=== PATIENT | female | born 1980 | race Caucasian/White ===

== ENCOUNTER 2021-06-11 08:12 | Day surgery (SDC) | payer OTHER ==
[2021-06-10 14:26] VITALS: BMI 25.7
[2021-06-11] MEDS ORDERED: BUPIVACAINE HCL/PF 0.5% (5MG/ML) 10 ML VIAL ONE (09:59)
[2021-06-11] MEDS ORDERED: BUPIVACAINE LIPOSOME/PF (EXPAREL) 266 MG/20 ML VIAL ONE (09:59)
[2021-06-11] MEDS ORDERED: MIDAZOLAM HCL 2 MG/2 ML SINGLE DOSE VIAL ONE (09:59)
[2021-06-11] MEDS ORDERED: PROMETHAZINE HCL 25 MG/1 ML VIAL IVPUSH PRN (10:20)
[2021-06-11] MEDS ORDERED: LACTATED RINGERS SOLUTION 1,000 ML IV SCH (10:30)
[2021-06-11] MEDS ORDERED: PROPOFOL 20 ML ONE ×2 (10:47→12:13)
[2021-06-11] MEDS ORDERED: HYDROmorphone HCL/PF 1 MG/ML VIAL ONE (11:19)
[2021-06-11 13:42] VITALS: TEMP 97.7
[2021-06-11 15:36] VITALS: BP 145/74; PULSE 84
== END 2021-06-11 14:10 | disposition home or self-care (01) ==
LOC: FASU 08:12
PROVIDERS: ATTEND Orthopaedic Surgery
PROC: 0QSG04Z Reposition Right Tibia with Internal Fixation Device, Open Approach (ICD-10-PCS; 2021-06-11)
PROC: 0QSG04Z Reposition Right Tibia with Internal Fixation Device, Open Approach (ICD-10-PCS; 2021-06-11)
PROC: 0HBKXZZ Excision of Right Lower Leg Skin, External Approach (ICD-10-PCS; 2021-06-11)
PROC: 0SBF0ZZ Excision of Right Ankle Joint, Open Approach (ICD-10-PCS; 2021-06-11)
PROC: 0QSJ04Z Reposition Right Fibula with Internal Fixation Device, Open Approach (ICD-10-PCS; principal; 2021-06-11 11:03)
DX: S82.851P Displaced trimalleolar fracture of right lower leg, subsequent encounter for closed fracture with malunion (principal); X58.XXXD Exposure to other specified factors, subsequent encounter; L90.5 Scar conditions and fibrosis of skin; L91.0 Hypertrophic scar
CPT/HCPCS: 11044; 11400; 27822; C1713; 73610-TC-RT-FY; 94760